=== PATIENT | male | born 1970 | race Hispanic/Latino ===

== ENCOUNTER 2017-10-21 11:34 | Emergency (ER) | payer OTHER ==
[~2017-10-21] VITALS: Ht 175.3 cm; Wt 95.2 kg
[~2017-10-21 11:34] MED LIST: NORCO 5-325 TA1 EACH PO
== END 2017-10-21 11:52 | disposition home or self-care (01) ==
LOC: ED 11:34
DX: S99.921A Unspecified injury of right foot, initial encounter (principal); W45.0XXA Nail entering through skin, initial encounter; Y99.0 Civilian activity done for income or pay